=== PATIENT | female | born 1935 | race Caucasian/White ===

== ENCOUNTER 2016-10-08 18:04 | Inpatient (IN) | payer MEDICARE, BC ==
--- NOTE | ~2016-10-08 | DS ---
Discharge Summary [id number] [place]. [address] NAME: MEERA ART : 33 STATUS : DIS IN PAT#: [id number] AGE: 80 ADM/REG DATE : 10/08/16 MR#: [id number] REPORT SERV DATE: 10/13/16 DICTATED BY: ADELAIDA YE DATE: 10/13/16 REPORT STATUS : Draft TRANSCRIBED BY: MODL DATE: 10/13/16 ADMISSION DATE: 10/08/2016 DISCHARGE DATE: 10/13/2016 DIAGNOSES OF DISCHARGE: 1. Left upper lung mass, likely lung cancer, status post EBUS performed by Dr. Catalino Guzmán on 10/11/2016, pathology currently pending. 2. Small left apical pneumothorax, status post procedure, stable. 3. Chest pain secondary to above, resolved. 4. Chronic lymphocytic leukemia, confirmed by flow cytometry. 5. Hypertension. 6. Aortic regurgitation. 7. 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 CONSULTANTS ON THE CASE: Dr. Catalino Guzmán, Pulmonary; Dr. Pelaez, CT Surgery; Dr. Sean Aviles, Hemato-Oncology; and Dr. White, Vascular. PROCEDURES DONE DURING THIS HOSPITALIZATION: Include an EBUS navigational bronchoscopy for the left upper lung mass with pathology currently pending, likely lung cancer. 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 The patient does not have any PE, no dissection, just osteopenia. 2D echo that has been performed on 10/11/2016 shows a left ventricular systolic ejection fraction of 50%, dilated left atrium, aortic sclerosis with moderate aortic regurgitation, no other abnormalities. Chest x-ray, on 10/11/2016 as well as on 10/12/2016 and 10/13/2016 showing a malignant mass of the left upper lung field and some atelectatic changes. Very difficult to be visualized apical pneumothorax on the x-ray plain film, but has significant decrease in size from the CT study. HOSPITAL COURSE: This is a very pleasant 80-year-old female who has been transfer from an outside facility to [facility], where at that time, she has been presenting with some chest discomfort and palpitation. At the outside facility, initial workup including a CTA of the chest, found that she had a left upper lung mass and also an incidental finding was an abdominal aortic aneurysm with a small segment of dissection. As a results of the findings, after talking with Dr. White, the Vascular surgeon on-call, the patient has been transferred to [facility] to Hospitalist Service with a consult from Dr. White, Vascular. Due to the new discovery of the left upper lung mass, a Pulmonary consult with Dr. Catalino Guzmán has been obtained and with the intention to perform an EBUS bronchoscopy. She came also with significant leukocytosis and lymphocytosis. There were no significant Discharge Summary [address] [address] NAME: MEERA ART : 33 STATUS : DIS IN PAT#: [id number] AGE: 80 ADM/REG DATE : 10/08/16 MR#: [id number] REPORT SERV DATE: 10/13/16 DICTATED BY: ADELAIDA YE DATE: 10/13/16 REPORT STATUS : Draft TRANSCRIBED BY: MODL DATE: 10/13/16 signs of infection. A peripheral smear as well as a flow cytometry has been order and an Oncology consult with Dr. Sean Aviles has been obtained as well. The results of the flow cytometry have confirmed that the patient had a CLL, probably stage I, and due to the new diagnosis of the left upper lung mass for which the patient underwent an EBUS with bronchoscopy with likely lung cancer, Dr. Aviles will follow with the patient as an outpatient with MRI of the brain, also PET scan and also PFTs to be done next week. The patient has been found incidentally as I said, on the CTA of the chest, an infrarenal abdominal aneurysm with a short segment of dissection. The patient has not been symptomatic. Dr. White from Vascular Service has been evaluated the patient. Again, the patient has been completely asymptomatic, so recommendation would be blood pressure control, aspirin, and statin. Most likely, the patient, as I said, does have atherosclerotic disease and that was an incidental finding on an irregular plate with a small amount of dissection. Recommendation from the Vascular Service was to see Dr. White in one month or so with an abdominal aortic ultrasound. Due to the result of the EBUS, Dr. Guzmán consulted Dr. Pelaez from CT Surgery, who planned the patient to be evaluated outpatient next week pending the results of the pathology. Postprocedure, the patient developed some chest discomfort, especially on the left upper scapular and initial chest x-ray postprocedure has been ordered which has not been identified a pneumothorax. That has been followed by a CTA of the chest with PE protocol which did not show any PE or dissection, but it has shown that the patient did have a small pneumothorax, that the patient has been treated with oxygen breathing treatments, incentive spirometer, and symptoms completely resolved. The patient did not require oxygen and it looked that the pneumothorax remained stable and even smaller. On 10/13/2016, the patient has been ready for discharge from the Pulmonary standpoint. The patient will have a scheduled follow up with Dr. Sean Aviles on the week of 10/22/2016. We will schedule PET scan as an outpatient, MRI with or without gadolinium, and a pulmonary function test with DLCO the week of 10/15/2016. Followup appointment with Dr. Pelaez, CT Surgery, next week and Vascular follow up with Dr. White in four weeks with an ultrasound. Follow up Pulmonary with Dr. Ebony Mccarthy from the Pulmonary Service in three to four weeks after discharge as well as primary care provider followup appointment with Dr. Tony Torres in one week after discharge. MEDICATIONS AT DISCHARGE: Would include Norvasc 5 mg p.o. daily, aspirin 162 p.o. daily atorvastatin 40 mg at bedtime, also Xalatan ophthalmic drops 1 GTT ophthalmic at the bedtime, Protonix 40 p.o. daily, Levaquin 750 p.o. q.48 hours three more doses, multivitamin one tablet p.o. daily, flaxseed oil one dose p.o. daily, albuterol MDI p.r.n., as well as Ultram p.r.n. for pain. The patient has been advised to present to [facility] Emergency Room with an increased shortness of breath or any chest pain recur. That has been discussed extensively with the patient as well as the patient's family. All the questions have been answered in full. I have spent more than 30 minutes at discharging the patient, Surekha Meera, medication reconciliation, discharge summary, discharge instruction, and written prescriptions as well. CF/WARREN Discharge Summary [place] [address] [place] [address] NAME: MEERA ART : 33 STATUS : DIS IN PAT#: [id number] AGE: 80 ADM/REG DATE : 10/08/16 MR#: [id number] REPORT SERV DATE: 10/13/16 DICTATED BY: ADELAIDA YE DATE: 10/13/16 REPORT STATUS : Draft TRANSCRIBED BY: WARREN DATE: 10/13/16 Adelaida Ye M.D. / [id number] CC: Sanford Alves M.D.
--- NOTE | ~2016-10-08 | HP ---
History And Physical [place] [address] [facility] [place]. [address] NAME: MEERA ART : 33 STATUS : ADM IN PAT#: [id number] AGE: 80 ADM/REG DATE : 10/08/16 MR#: [id number] REPORT SERV DATE: 10/09/16 DICTATED BY: BIANKA SANCHEZ DATE: 10/08/16 REPORT STATUS : Draft TRANSCRIBED BY: MODL DATE: 10/08/16 DATE OF ADMISSION: 10/08/2016 CHIEF COMPLAINT: 1. Fast heart rate. 2. Transferred from [facility] after findings of leukocytosis with WBC count of 40,000 with lung mass and small dissection aneurysm. The case has already been discussed by ED physician at [facility] and Dr. White with Vascular Surgery. She was reported to be medically stable for telemetry floor, hemodynamically stable for telemetry floor. HISTORY OF PRESENT ILLNESS: The patient is a very pleasant 80-year-old female with only past medical history of psoriasis, very functional and active who appears younger than stated age who was having a fast heart rate type symptoms earlier today and mild discomfort in her back between her shoulder blades. When she told her son about this, she was promptly recommended to go to the emergency room. Upon evaluation at the emergency room, symptoms of tachycardia had already resolved, and the patient was already feeling better but workup did show abnormalities in labs including WBC and D-dimer which appears to have prompted CTA although this report is not currently available to me and is in the process of being sent. The findings did report small dissection with compensated vital signs, lung mass but no reported PE has been discussed. The patient was transferred to [facility] after ED has discussed with Dr. White for vascular evaluation and higher level of care. When discussing with the patient, the patient reports that she is doing quite well, has not had any cold extremities, has not had any vomiting of blood. No history of any tumors, did have recent sinusitis infection which was treated supportively at home. Her primary care doctor is Dr. Torres. The patient denies any current chest pain, palpitations. No nausea, vomiting. No active diarrhea, does report once a week may have diarrhea type episode going back almost a year but this has been intermittent and not continuous. The patient currently has a 0/10 pain. Symptoms occurred this morning when she woke up, went to rest and that is when she noted that she had a fast heart rate. REVIEW OF SYSTEMS: A 10-point review of systems negative except that noted in the HPI. PAST MEDICAL HISTORY: Only for psoriasis. SURGICAL HISTORY: She has had right hand surgery after a fall. She has had two vaginal deliveries but no gallbladder, no tonsils, no hysterectomy history. SOCIAL HISTORY: Smoked for approximately 8-10 years when she was younger but has quit many moons ago. She does have a nightly nightcap for alcohol and no illicits. FAMILY HISTORY: Of diabetes, otherwise family is fairly healthy, living from to [facility]. History And Physical [address] [address] NAME: MEERA ART : 33 STATUS : ADM IN [facility]#: [id number] AGE: 80 ADM/REG DATE : 10/08/16 MR#: [id number] REPORT SERV DATE: 10/09/16 DICTATED BY: BIANKA SANCHEZ DATE: 10/08/16 REPORT STATUS : Draft TRANSCRIBED BY: WARREN DATE: 10/08/16 ALLERGIES: PENICILLIN AND SULFA. MEDICATIONS: Xalatan, Centrum, and flaxseed oil. PHYSICAL EXAMINATION: VITAL SIGNS: The patient's blood pressure on the left arm 152/63, right arm 145/67, right leg 151/65, left leg 151/61, heart rate 67, respiratory rate 16. GENERAL: No acute distress. Calm, pleasant, well developed, well nourished, appears younger than stated age. EYES: No scleral icterus. EOMI. ENT: Nares patent. Tongue midline. Does have mild poor dentition. NECK: Supple without JVD. CHEST: Equal chest expansion. No increased AP diameter. RESPIRATORY: Clear to auscultation bilaterally. No wheezes, rales, or rhonchi. CARDIAC: Does have regular rate. Cap refill less than 2 seconds. Pulses palpable x4, does have systolic ejection murmur, approximately 2/6 but no rubs. ABDOMEN: Soft, nontender, nondistended. Bowel sounds positive. No fluid wave. No organomegaly. MUSCULOSKELETAL: Moves all extremities x4. Symmetrical strength upper and lower extremities. NEURO: Alert and oriented. Symmetrical smile. Tongue midline. Normal vocal debora. Sensation is grossly intact in upper and lower extremities. Leg and arms straight, symmetrical and equal, 5/5 strength. Gait currently not tested. PSYCH: Appropriate mood and affect. HEME: No bleeding or bruising. LYMPH: No cervical or supraclavicular lymphadenopathy. : Deferred. LABORATORY DATA: Pertinent labs from outside facility; WBC count 40.4, H and H 14.4 and 42.8, MCV 99, platelets 288, absolute lymphocyte 34.7. CK total 52. Sodium 141, potassium 5.2, calcium 8.9, BUN creatinine 16 and 0.85, AST ALT within normal limits. Bilirubin 0.8, magnesium 2.1. INR 1.0. Troponin less than 0.3. D-dimer was 0.64. CT has not been sent and is still currently pending. CT with contrast that was performed at outside facility report per transferring physician Dr. Mcleod, lung mass and small dissection and has been discussed with Dr. White. ASSESSMENT AND PLAN: 1. Leukocytosis. 2. Lung mass consolidation. 3. Dissected aneurysm. 4. Murmur. PLAN: 1. For leukocytosis; antibiotics until CT obtained. We will repeat chest x-ray in a.m. The patient did have contrasted CT. We will monitor. No additional SIRS symptoms. We will check SPEP, UPEP, start antibiotics until lung mass consolidation can be ruled History And Physical [address] [address] NAME: MEERA ART : 33 STATUS : ADM IN [facility]#: [id number] AGE: 80 ADM/REG DATE : 10/08/16 MR#: [id number] REPORT SERV DATE: 10/09/16 DICTATED BY: BIANKA SANCHEZ DATE: 10/08/16 REPORT STATUS : Draft TRANSCRIBED BY: MODL DATE: 10/08/16 out. We will also obtain procalcitonin and cultures. 2. Lung mass consolidation; cultures to be obtained. Antibiotics started, does have history of penicillin allergy. Obtain records from facility for further delineation. Additionally obtained last records from PCP, currently asymptomatic. We will defer further consultation to Pulmonary if indicated once CT obtained and placed on chart with records to be reviewed and a.m. chest x-ray. 3. Dissected aneurysm as reported small. ED has discussed this case with Dr. Phade, Vascular Surgery. I have checked all four extremities. There are no signs or symptoms of acute vascular decompensation but we will monitor closely on telemetry, and I have discussed with the family that any signs of decompensation will require higher level of care. However, the patient is essentially asymptomatic currently. She did have a tobacco use history for 8-10 years when she was younger but has not smoked in many years and has been fairly functional and active. We will defer further management to Vascular team. We will continue serial blood pressure checks symmetrically and pulse checks q.4 and per shift. 4. Murmur, grade 2/6 but no history. EKG from outside did not show any acute ST changes. Rate was 74, QTc 401. We will obtain echo and monitor troponins and repeat EKG in a.m. POLST form was completed with the patient and family. DNI, okay for chest compressions and limited short-term feeding tube if indicated. DDN/MODL Bianka Sanchez MD / [id number] CC: Poppy Sloan M.D.
--- NOTE | ~2016-10-08 | EGD ---
EGD REPORT [facility] [address] [address] NAME: MEERA IRBY : 33 STATUS : ADM IN PAT#: [id number] AGE: 80 ADM/REG DATE : 10/08/16 MR#: [id number] REPORT SERV DATE: 10/11/16 DICTATED BY: SRINIVAS CASTRO DATE: 10/11/16 REPORT STATUS : Draft TRANSCRIBED BY: [facility] DATE: 10/11/16 Pulmonology Patient Name: Meera Irby. Procedure Date: 10/11/2016 4:45 PM Date of : 1935 Attending MD: JEAN PAUL CASTRO MD Procedure Date No Time: 10/11/2016 Procedure: EBUS Navigational Bronchoscopy Indications: RIGO lung mass Providers: JEAN PAUL CASTRO MD Referring MD: LIDIA YE MD Medicines: Lidocaine 2% 20 mL Complications: No immediate complications Procedure: Pre-Anesthesia Assessment: - A History and Physical has been performed. Patient meds and allergies have been reviewed. The risks and benefits of the procedure and the sedation options and risks were discussed with the patient. All questions were answered and informed consent was obtained. Patient identification and proposed procedure were verified prior to the procedure by the physician and the nurse in the procedure room. Mental Status Examination: alert and oriented. Respiratory Examination: clear to auscultation. CV Examination: normal and RRR, no murmurs, no S3 or S4. ASA Grade Assessment: III - A patient with severe systemic disease. After reviewing the risks and benefits, the patient was deemed in satisfactory condition to undergo the procedure. The anesthesia plan was to use general anesthesia. Immediately prior to administration of medications, the patient was re-assessed for adequacy to receive sedatives. The heart rate, respiratory rate, oxygen saturations, blood pressure, adequacy of pulmonary ventilation, and response to care were monitored throughout the procedure. The physical status of the patient was re-assessed after the procedure. After obtaining informed consent, the BF [id number] was introduced through the mouth, via the endotracheal tube (the patient was intubated for the procedure) and advanced to the tracheobronchial tree. the Bronchoscope was introduced through the mouth, via the endotracheal tube (the patient was intubated for the procedure) and advanced to the tracheobronchial tree. The procedure was accomplished without difficulty. The patient tolerated the procedure well. Findings: EGD REPORT [address] [address] NAME: MEERA IRBY : 33 STATUS : ADM IN [facility]#: [id number] AGE: 80 ADM/REG DATE : 10/08/16 MR#: [id number] REPORT SERV DATE: 10/11/16 DICTATED BY: SRINIVAS CASTRO DATE: 10/11/16 REPORT STATUS : Draft TRANSCRIBED BY: [employer] DATE: 10/11/16 The endotracheal tube is in good position. The visualized portion of the trachea is of normal caliber. The francine is sharp. The tracheobronchial tree was examined to at least the first subsegmental level. Bronchial mucosa and anatomy are normal; there are no endobronchial lesions, and no secretions. EBUS TBNA of lymph node level 11R x 4 passes for cytology EBUS TBNA of lymph node level 7 x 9 passes for cytology EBUS TBNA of lymph node level 11L x 4 passes for cytology Using SuperDimension Edge catheter 180, peripheral probe EBUS 17s, and fluoroscopy, I performed the following biopsies: RIGO lung mass transbronchial needle aspirates x 15 passes for cytology RIGO lung mass transbronchial brush biopsy x 1 pass for cytology RIGO lung mass transbronchial forcep biopsies x 13 passes for histopathology Bronchoalveolar lavage was performed in the left upper lobe of the lung and sent for cell count, cytology, bacterial culture, viral smears \T\ culture, and fungal and AFB analysis. 180 mL of fluid were instilled. 50 mL were returned. The return was cellular. Impression: Rapid On-Site Evaluation (NAIN): Preliminary cytology is POSITIVE for malignancy (final results are pending). Recommendation: - Await test results. - Follow up with bronchoscopist tomorrow. - Follow up with Dr. Sean Aviles Attending Participation: I personally performed the entire procedure. JEAN PAUL CASTRO MD 10/11/2016 6:26 PM This report has been signed electronically. Number of Addenda: 0 Note Initiated On: 10/11/2016 4:45 PM [address] [address]
--- NOTE | ~2016-10-08 | CN ---
Consultation Report [facility] [address] [place]. [address] NAME: MEERA IRBY : 33 STATUS : ADM IN PAT#: [id number] AGE: 80 ADM/REG DATE : 10/08/16 MR#: [id number] REPORT SERV DATE: 10/10/16 DICTATED BY: ROBERTA CASTRO DATE: 10/09/16 REPORT STATUS : Draft TRANSCRIBED BY: MODL DATE: 10/09/16 CONSULTATION REPORT DATE OF CONSULTATION: Dear Dr. Acuña: Thank you for requesting my opinion regarding evaluation and management of Ms. Meera Irby's left upper lobe lung mass. Ms. Irby is an 80-year-old female with a significant past medical history of psoriasis, who presented to [facility] as an outside hospital transfer for a dissection. Dr. White has already evaluated her and deemed her dissection as a nonsurgical case. He did recommend aspirin. During her workup, she ended up having a CTA of the chest that demonstrated a left upper lobe lung mass with air bronchograms lead to more solid component. The patient has smoked remotely for 8 to 10 years when she was very young. She denies any known history of malignancy. The patient states that she has no significant current shortness of breath. She has expected exertional dyspnea, well-localized to the chest, nonradiating with no significant alleviating or exacerbating factors. She had an episode of a fast heart rate which is resolved. REVIEW OF SYSTEMS: A detailed 14-point review of systems was completed. Pertinent positives and negatives are listed above. PAST MEDICAL HISTORY: Psoriasis. PAST SURGICAL HISTORY: 1. Right hand surgery after mechanical fall. 2. Two vaginal deliveries. SOCIAL HISTORY: The patient smoked for 8 to 10 years when she was very young. She does have a nightly night cap for alcohol, but she denies any significant illicit drug abuse. FAMILY HISTORY: Diabetes. ALLERGIES: PENICILLIN AND SULFA. HOME MEDICATIONS: Xalatan, centrum, and flaxseed oil. PHYSICAL EXAMINATION: VITAL SIGNS: Afebrile, T current of 97.1, pulse of 73, respiratory rate 16, room air 94%, and blood pressure 144/62. GENERAL: No acute distress. Able to communicate in full paragraphs at a time. HEENT: Normocephalic, atraumatic. Pupils are equal, round, and reactive to light and Consultation Report [facility] [address] [place]. [address] NAME: MEERA IRBY : 33 STATUS : ADM IN PAT#: [id number] AGE: 80 ADM/REG DATE : 10/08/16 MR#: [id number] REPORT SERV DATE: 10/10/16 DICTATED BY: ROBERTA CASTRO DATE: 10/09/16 REPORT STATUS : Draft TRANSCRIBED BY: MODL DATE: 10/09/16 accommodation. Posterior oropharynx is clear. NECK : No JVD. No LAD. Trachea midline. CARDIOVASCULAR: Regular rate and rhythm. S1, S2 present. LUNGS: Clear to auscultation bilaterally. ABDOMEN: Nontender, nondistended. Soft. Positive bowel sounds. EXTREMITIES: No clubbing, cyanosis, or edema. SKIN: No new rashes, lesions, or ulcers. PSYCHIATRIC: Alert and oriented x3. Appropriate mood and affect. Appropriate insight and judgment. NEUROLOGIC: 5/5 strength in upper and lower extremities. Cranial nerves II through XII intact. Gait not tested. DTRs not performed. LABORATORY DATA: Procalcitonin is negative. The patient's white count is 39,000 on admission, 36.8 thousand on repeat. The patient's urine antigen is negative. IMAGING: Chest CT at outside hospital was personally reviewed by me and I agreed with the following interpretation: Left upper lobe lung mass with air bronchograms leading to a more solid component. No obvious mediastinal lymphadenopathy and small dissection is noted. ASSESSMENT AND PLAN: Ms. Meera Irby is a pleasant 80-year-old female with a significant past medical history of psoriasis and remote, minimal smoking history, who presents to [facility] as a transferred from outside hospital for evaluation of a dissecting aneurysm. During her workup, she had a CTA of the chest that demonstrated a left upper lobe lung mass with air bronchograms leading to more solid component. The patient also has a significant leukocytosis, if interesting, lymphocyte-predominant raising the question of whether or not she has chronic myelogenous leukemia. With regard to her left upper lobe lung mass, this may represent an inflammatory process such as a lung abscess or mass. At this point, we discussed in detail potential options including repeat imaging, PET-CT scan, CT-guided needle biopsy, EBUS and navigation bronchoscopy, or surgical intervention. After careful discussion of the risks, benefits, and alternatives to each of these procedures, the patient agreed to proceed with possible EBUS bronchoscopy. Pending further discussion with her family. The patient is aware that the procedure is associated with potential life-threatening risks, including lung collapse, respiratory failure, and even . RECOMMENDATIONS: A summary of my recommendations are as follows: 1. Continue current antibiotics given her profound leukocytosis. 2. Agree with Hematology consultation. Consultation Report [address] [place]. [address] NAME: MEERA IRBY : 33 STATUS : ADM IN PAT#: [id number] AGE: 80 ADM/REG DATE : 10/08/16 MR#: [id number] REPORT SERV DATE: 10/10/16 DICTATED BY: ROBERTA CASTRO DATE: 10/09/16 REPORT STATUS : Draft TRANSCRIBED BY: WARREN DATE: 10/09/16 3. Peripheral blood smear. 4. EBUS and navigation bronchoscopy in the next one to two days. 5. Pending family approval and discussion with Dr. White. Thank you for allowing me to participate in Ms. Meera Irby's care. Sincerely, TELMA/WARREN Roberta Castro M.D. / [id number] CC: Sanford Alves M.D.
--- NOTE | ~2016-10-08 | CN ---
Consultation Report [facility] [address] [facility] [place]. [address] NAME: MEERA IRBY : 33 STATUS : ADM IN PAT#: [id number] AGE: 80 ADM/REG DATE : 10/08/16 MR#: [id number] REPORT SERV DATE: 10/10/16 DICTATED BY: SEAN AVILES DATE: 10/09/16 REPORT STATUS : Draft TRANSCRIBED BY: MODL DATE: 10/09/16 DATE OF CONSULTATION: REASON FOR CONSULTATION: Lymphocytosis. HISTORY OF PRESENT ILLNESS: Meera Irby is an 80-year-old woman with history of psoriasis and minor surgery. She has less than a [id number] smoking history and quit more than 60 years ago. She was transferred from [facility] after abnormal CT finding and marked leukocytosis. White count was 40,000 with mostly lymphocytes. She underwent a CT scan, and had a possibility of aortic dissection. The left upper lobe mass was also found. She was transferred. She has been seen by a Vascular Surgery, he thinks there are no signs of dissection, and this can be observed, aneurysm can be observed. She has been seen by Dr. Guzmán of pulmonary who plans to evaluate with a bronchoscopy, the left upper lobe lesion. She denies any significant cough, fevers, recent infections other than perhaps a viral flu-like illness last month. The patient lives alone. She is fairly active. She denies any significant adenopathy, although she did notice a right posterior cervical node with a recent viral illness. PAST MEDICAL HISTORY: Psoriasis. PAST SURGICAL HISTORY: Right hand surgery, two vaginal deliveries. SOCIAL HISTORY: She reports that she has smoked six to eight years, less than a half-a-pack a day. Quit more than 50 to 60 years ago. 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 FAMILY HISTORY: No significant family history of cancer. ALLERGIES: PENICILLIN AND SULFA. MEDICATIONS: Xalatan, centrum, and flaxseed oil. REVIEW OF SYSTEMS: See my HPI. A 12-point review of systems negative for any symptoms. PHYSICAL EXAMINATION: VITAL SIGNS: Temperature 97.1, heart rate is 74, BP 144/62. HEENT: Pupils equal, round, reactive. No oral lesions. No cervical adenopathy. LUNGS: Clear to auscultation. No wheezes or rales. CARDIAC: Regular rate and rhythm. Normal S1, S2. Axillary nodes were palpable, left greater than right, measuring around 2 cm on the left, and 1 cm on the right. ABDOMEN: Soft, nontender, nondistended. No splenomegaly. EXTREMITIES: No clubbing, no cyanosis, no edema. LABORATORY DATA: Peripheral film was reviewed. She does have marked head lymphocytosis with Consultation Report [address] [place]. [address] NAME: MEERA IRBY : 33 STATUS : ADM IN PAT#: [id number] AGE: 80 ADM/REG DATE : 10/08/16 MR#: [id number] REPORT SERV DATE: 10/10/16 DICTATED BY: SEAN AVILES. DATE: 10/09/16 REPORT STATUS : Draft TRANSCRIBED BY: WARREN DATE: 10/09/16 significance smudge cells. ASSESSMENT AND PLAN: Ms. Irby is an 80-year-old woman with two separate processes. CT scan was reviewed, she does have a left upper lobe mass. There is no mediastinal adenopathy, but she also does have bilateral axillary nodes, I think, major account representative of the lymphocytosis process. ASSESSMENT AND PLAN: Ms. Irby is [id number]. She has 2 separate processes: 1. Left upper lobe mass. I am worried this could be a malignancy. She is oligo-smoker, quit more than 60 years ago. I am hoping that this is benign, but if not then certainly her performance status is good, recommended that we go ahead and perform a flow cytometry to confirm that this is chronic lymphocytic leukemia. If this is, then we will likely observe at this time. The CT scans were reviewed with the patient and her family and all other questions answered. DBD/MODL Sean Aviles M.D. / [id number] CC: Sanford Alves M.D.
--- NOTE | ~2016-10-08 | CN ---
Consultation Report [facility] [address] [place]. [address] NAME: MEERA ART : 33 STATUS : ADM IN PAT#: [id number] AGE: 80 ADM/REG DATE : 10/08/16 MR#: [id number] REPORT SERV DATE: 10/11/16 DICTATED BY: NAV WHITE DATE: 10/10/16 REPORT STATUS : Draft TRANSCRIBED BY: MODDonal DATE: 10/10/16 CONSULT NOTE DATE OF CONSULTATION: 10/09/2016 REASON FOR CONSULTATION: Evaluation for aortic dissection. BRIEF HISTORY: The patient is an 80-year-old female with a past medical history that is fairly unremarkable who presented to [facility] with tachycardia. In her workup, she underwent a CT of her chest. There was a reported aortic dissection on this imaging so she was sent over for further treatment. Additionally, she was found to have a lung mass and leukocytosis for which she is being worked up. The patient denies any complaints. She specifically denies any abdominal or back pain. She has had no problems with claudication or ischemic rest pain. She has had no food fear or weight loss. PAST MEDICAL HISTORY: Psoriasis. PAST SURGICAL HISTORY: Right hand surgery, 2 vaginal deliveries. SOCIAL HISTORY: She smoked in the remote past. It sounds like she has smoked for about 8 years. She occasionally drinks but denies any drug use. She has supportive family. ALLERGIES: PENICILLIN AND SULFA. MEDICATIONS: Documented on the chart and were reviewed. REVIEW OF SYSTEMS: A complete review of systems was performed and is negative with the exception of aforementioned findings. FAMILY HISTORY: Noncontributory. PHYSICAL EXAMINATION: VITAL SIGNS: Documented on the chart and were reviewed. GENERAL: The patient is awake, alert, oriented. No apparent distress. HEAD AND NECK: Benign without any carotid bruits. HEART: Regular rate and rhythm. LUNGS: Clear. ABDOMEN: Soft, nontender, nondistended with a nonaneurysmal aorta. EXTREMITIES: She has a normal complement of upper extremity pulses without any significant edema or ischemic ulcerations. She has palpable femoral and popliteal pulses. I do not appreciate pedal pulses. She has no significant edema or ischemic ulcerations. NEUROLOGICAL: Grossly nonfocal. MUSCULOSKELETAL: Otherwise benign. Consultation Report [place] [id number] [facility] [address] [place]. [address] NAME: MEERA ART DOB: [birth year] STATUS : ADM IN PAT#: [id number] AGE: 80 ADM/REG DATE : 10/08/16 MR#: [id number] REPORT SERV DATE: 10/11/16 DICTATED BY: NAV WHITE DATE: 10/10/16 REPORT STATUS : Draft TRANSCRIBED BY: WARREN DATE: 10/10/16 LABORATORY DATA: Her laboratory investigations reveal no renal dysfunction. She does have a leukocytosis of over 30,000. It looks like it has decreased a little bit. I reviewed her CT imaging. She has a left upper lobe lung mass. She has some calcification and plaque within her aorta and branch vessels. In her very last images of her CT of her chest, there is some irregular plaque in her infrarenal aorta with some flow within the plaque. This looks like a short segment dissection. It is incompletely imaged. ASSESSMENT AND PLAN: It looks like this lady has a lung mass and leukocytosis. Most likely, she has a malignancy. She has atherosclerotic disease and an incidental finding of an irregular plaque with dissection. She is asymptomatic from this. She simply needs an aspirin and statin. I will see her back in a month or 2 with an aortic ultrasound. We certainly would not treat anything this asymptomatic. Having said that, I will also want to get a lower extremity arterial duplex, because her popliteal pulses feel a little wide. I suspect that they are probably not aneurysmal, but rather she has a bounding pulse because of an outflow obstruction. Once again, we probably would not treat this unless she is symptomatic or if she has a large aneurysm. I explained all this to the patient and her family, who expressed understanding. She was excited of the fact that she does not have to have an operation acutely. SHOT EXAMINER/WARREN Nav White M.D. / [id number] CC: Sanford Alves M.D.
--- NOTE | ~2016-10-08 | DS ---
Discharge Summary [facility] [address] [place]. [address] NAME: MEERA ART : 33 STATUS : ADM IN PAT#: [id number] AGE: 80 ADM/REG DATE : 10/08/16 MR#: [id number] REPORT SERV DATE: 10/12/16 DICTATED BY: ADELAIDA YE DATE: 10/12/16 REPORT STATUS : Draft TRANSCRIBED BY: MODL DATE: 10/12/16 ADMISSION DATE: 10/08/2016 DISCHARGE DATE: DIAGNOSES OF DISCHARGE: 1. Left upper lung mass, likely lung cancer. Pathology currently. Status post EBUS performed by Dr. Catalino Guzmán on 10/11/2016. 2. Chronic lymphocytic leukemia, confirmed by flow cytometry. 3. Small abdominal aneurysm dissection on CT scan of the chest performed at the outside facility. 4. Hypertension. 5. Aortic regurgitation. CONSULTANTS ON THE CASE: Dr. Catalino Guzmán, Pulmonary; Dr. Pelaez, CT Surgery; Dr. Sean Aviles, Hemato-Oncology; and Dr. White, Vascular. PROCEDURE DONE DURING THIS HOSPITALIZATION: Include an EBUS navigational bronchoscopy for the left upper lung mass with likely lung cancer. Pathology, cytology, and PillCam currently are pending. Also, done during this hospitalization would include 2D echo that has been performed on 10/11/2016 showing normal left ventricular systolic function, ejection fraction of 50%, dilated left atrium, aortic sclerosis with moderate aortic valvular regurgitation. No other abnormalities. Also, the patient's chest x-ray, portable, on 10/11/2016, showing mass-like round infiltrate of the left upper lobe. Her blood cultures have remained negative at discharge. HOSPITAL COURSE: This is a very pleasant 80-year-old female who has been transferred to [facility] from an outside facility on 10/09/2016 where she has been presenting with some chest discomfort and palpitation. At the outside facility, she has been found to have a white count of 40,000, found also to have a left upper lung mass and an abdominal aortic aneurysm with a small segment of dissection. After discussion with Dr. White, the vascular surgeon on-call, the patient has been transferred to [facility]. Due to the presence of the left upper lung mass, a Pulmonary consult with Dr. Catalino Guzmán has been obtained with the intent to perform an EBUS as navigational bronchoscopy. Obviously, her white count has been extremely elevated on admission. She did not have the signs of infection. A peripheral smear as well as a flow cytometry has been ordered and done and Oncology consult with Dr. Sean Aviles has been obtain as well. Obviously, the patient flow has confirmed that the patient has CLL, probably stage I and also due to the presence of the left upper lung mass which likely is lung cancer, per the recommendation, per Dr. Aviles has been done. Due to the fact that the patient did have a very short segment of dissection at the infrarenal abdominal aorta, Dr. White from Vascular Service has been evaluating the patient. The patient has been completely asymptomatic from that, obviously she simply would need to be on blood pressure control, aspirin and statin. Most likely, she does have Discharge Summary [address] [address] NAME: MEERA ART : 33 STATUS : ADM IN PAT#: [id number] AGE: 80 ADM/REG DATE : 10/08/16 MR#: [id number] REPORT SERV DATE: 10/12/16 DICTATED BY: ADELAIDA YE DATE: 10/12/16 REPORT STATUS : Draft TRANSCRIBED BY: MODDonal DATE: 10/12/16 atherosclerotic disease and that was an incidental finding on an irregular plate with a small amount of dissection. The plan from Dr. White would to be see her back in his clinic in one month or so with an abdominal aortic ultrasound. The patient has been seen after the EBUS navigational bronchoscopy by the CT Surgeon, Dr. Pelaez's nurse practitioner, who planned to follow the patient as an outpatient next week, pending the results of the pathology. On 10/12/2016, the patient has been ready for discharge. The patient will have a scheduled follow up with Dr. Sean Aviles on the week of 10/22/2016. We will schedule a PET scan, MRI with and without gadolinium and a pulmonary function test with DLCO next week of week of 10/15/2016. We will arrange a followup appointment with Dr. Pelaez, CT Surgery, next week, vascular follow up with Dr. White in four weeks after discharge and Pulmonary followup with Dr. Ebony Mccarthy from Pulmonary Service in three to four weeks after discharge, then primary care provider followup appointment with Dr. Tony Torres in one week after discharge. MEDICATIONS AT DISCHARGE: Would include Norvasc 5 mg p.o. daily, aspirin 162 p.o. daily, Lipitor 40 p.o. daily, Protonix 40 mg p.o. daily, Levaquin 750 mg p.o. q.48 hours x3 doses, and Xalatan ophthalmic solution 1 gtt at bedtime in both eyes. That has been discussed extensively with the patient as well as the patient's family. All the questions have been answered in full. I have spent more than 30 minutes at discharging patient Pack Meera medication reconciliation, discharge summary, discharge instruction, and written prescriptions as well. CF/MODL Adelaida Ye M.D. / [id number] CC: Sanford Alves M.D. Pamela Sud, M.D. Sachin V Phade, M.D. James Headrick Jr., M.D. Davey B. Daniel, M.D.
[2016-10-08] MEDS ORDERED: FLAX SEED OIL PO (19:01)
[2016-10-08] MEDS ORDERED: CENTRUM PO (19:01)
[2016-10-08] MEDS ORDERED: XALAT OPH (19:05)
[2016-10-08 22:06] LABS: HEMATOCRIT 39.6 % (36.0-48.0); HEMOGLOBIN 13.4 g/dL (12.0-16.0); MEAN CORPUS HGB CONC 33.8 g/dL (32.0-36.0); MEAN CORPUSCULAR HEMOGLOB 33.9 pg (26.0-34.0); MEAN CORPUSCULAR VOLUME 100.3 fL (80-100); MEAN PLATELET VOLUME 9.3 fL (9.2-13.0); PLATELET COUNT 236 10/3/uL (150-400); RBC DISTRIBUTION WIDTH 14.2 % (12.0-16.0); RED CELL COUNT 3.95 10/6/uL (4.0-5.6)
[2016-10-08 22:11] LABS: WHITE BLOOD CELLS 39.6 10/3/uL (4.5-10.5)
[2016-10-08 22:13] LABS: MANUAL DIFF YES %
[2016-10-08 22:27] LABS: BASOPHILS 1 %; LYMPHOCYTES 83 %; LYMPHOCYTES ABSOLUTE (CALC) 32.87 10/3/uL (0.67-4.30); MONOCYTES 6 %; MONOCYTES ABSOLUTE (CALC) 2.38 10/3/uL (0.21-1.20); NEUTROPHILS ABSOLUTE (CALC) 3.96 10/3/uL (2.02-8.40); SEGMENTED NEUTROPHIL (0) 10 %; SMUDGE CELLS FEW; TOTAL NUCLEATED CELLS 100
[2016-10-08 22:28] LABS: ALBUMIN 3.5 G/DL (3.5-5.0); ALKALINE PHOSPHATASE 78 U/L (45-117); BUN (BLOOD UREA NITROGEN) 21 MG/DL (6-23); CALCIUM, SERUM 8.7 MG/DL (8.5-10.4); CHLORIDE, SERUM 106 MMOL/L (96-112); CO2 (CARBON DIOXIDE) 25 MMOL/L (24-34); CREATININE 1.02 MG/DL (0.55-1.02); GFR AFRICAN AMERICAN 59 ML/MIN (>=60); GFR NON AFRICAN AMERICAN 51 ML/MIN (>=60); GLOBULIN 3.4 G/DL (2.5-4.1); GLUCOSE, SERUM 104 MG/DL (60-99); POTASSIUM, SERUM 4.5 MMOL/L (3.5-5.3); SGPT(ALT) 18 U/L (5-65); SODIUM, SERUM 139 MMOL/L (135-148); TOTAL PROTEIN 6.9 G/DL (6.0-8.5); TROPONIN I 0.03 NG/ML (<0.05)
[2016-10-08 22:28] LABS: PATH REVIEW YES; PLATELET ESTIMATE ADQ (ADEQUATE); RBC MORPHOLOGY NORM (NORMAL)
[2016-10-08 22:29] LABS: SGOT(AST) 21 U/L (5-40)
[2016-10-08 23:20] LABS: PROCALCITONIN <0.05 ng/mL (<0.5)
[2016-10-09 02:06] LABS: ASCORBIC ACID (UR NOT ORDER) NEG (NEG); BILIRUBIN, URINE NEGATIVE (NEG); KETONE, URINE NEGATIVE (NEG); LEUKOCYTE ESTERASE(NOT OR TRACE (NEG); WBC (NOT ORDERED) (RFLEX) 2 (0-5)
[2016-10-09 08:19] LABS: HEMATOCRIT 39.2 % (36.0-48.0); HEMOGLOBIN 13.4 g/dL (12.0-16.0); MEAN CORPUS HGB CONC 34.2 g/dL (32.0-36.0); MEAN CORPUSCULAR HEMOGLOB 34.4 pg (26.0-34.0); MEAN CORPUSCULAR VOLUME 100.5 fL (80-100); MEAN PLATELET VOLUME 9.1 fL (9.2-13.0); PLATELET COUNT 233 10/3/uL (150-400); RBC DISTRIBUTION WIDTH 14.2 % (12.0-16.0)
[2016-10-09 08:22] LABS: MANUAL DIFF YES %; WHITE BLOOD CELLS 36.8 10/3/uL (4.5-10.5)
[2016-10-09 08:29] LABS: CALCIUM, SERUM 8.8 MG/DL (8.5-10.4); CHLORIDE, SERUM 105 MMOL/L (96-112); CO2 (CARBON DIOXIDE) 26 MMOL/L (24-34); CREATININE 0.98 MG/DL (0.55-1.02); GFR AFRICAN AMERICAN 62 ML/MIN (>=60); GFR NON AFRICAN AMERICAN 54 ML/MIN (>=60); GLUCOSE, SERUM 85 MG/DL (60-99); POTASSIUM, SERUM 4.1 MMOL/L (3.5-5.3); SODIUM, SERUM 140 MMOL/L (135-148)
[2016-10-09 08:30] LABS: BUN (BLOOD UREA NITROGEN) 17 MG/DL (6-23)
[2016-10-09 08:31] LABS: T PROTEIN (ELECT)(NOT OR 6.6 G/DL (6.0-8.5)
[2016-10-09 08:42] LABS: LYMPHOCYTES 85 %; LYMPHOCYTES ABSOLUTE (CALC) 31.28 10/3/uL (0.67-4.30); MACROCYTES 1+ (5-10/OIF) (0-5/OIF); MONOCYTES 5 %; MONOCYTES ABSOLUTE (CALC) 1.84 10/3/uL (0.21-1.20); NEUTROPHILS ABSOLUTE (CALC) 3.68 10/3/uL (2.02-8.40); PLATELET ESTIMATE ADQ (ADEQUATE); SEGMENTED NEUTROPHIL (0) 10 %; SMUDGE CELLS FEW; TOTAL NUCLEATED CELLS 100
[2016-10-09 08:43] LABS: ATYPICAL LYMPH FEW (3-5%) (0-5%); REACTIVE LYMPHS OCC (0-2%) (0-5%)
[2016-10-09 10:37] LABS: PATH REVIEW SEE PATHOLOGY REPORT
[2016-10-09 13:28] LABS: TROPONIN I <0.02 NG/ML (<0.05)
[2016-10-09 13:30] LABS: FOLATE 18.6 NG/ML (>5.2)
[2016-10-10 06:40] LABS: HEMATOCRIT 37.9 % (36.0-48.0); HEMOGLOBIN 12.9 g/dL (12.0-16.0); MEAN CORPUSCULAR HEMOGLOB 34.2 pg (26.0-34.0); MEAN CORPUSCULAR VOLUME 100.5 fL (80-100); MEAN PLATELET VOLUME 9.2 fL (9.2-13.0); PLATELET COUNT 202 10/3/uL (150-400); RBC DISTRIBUTION WIDTH 14.1 % (12.0-16.0); RED CELL COUNT 3.77 10/6/uL (4.0-5.6)
[2016-10-10 06:42] LABS: MANUAL DIFF YES %; WHITE BLOOD CELLS 32.1 10/3/uL (4.5-10.5)
[2016-10-10 06:54] LABS: A/G RATIO 0.9 (0.7-1.9); ALBUMIN 2.9 G/DL (3.5-5.0); ALKALINE PHOSPHATASE 70 U/L (45-117); BUN (BLOOD UREA NITROGEN) 14 MG/DL (6-23); CALCIUM, SERUM 8.5 MG/DL (8.5-10.4); CHLORIDE, SERUM 109 MMOL/L (96-112); CO2 (CARBON DIOXIDE) 22 MMOL/L (24-34); CREATININE 0.92 MG/DL (0.55-1.02); GFR AFRICAN AMERICAN 67 ML/MIN (>=60); GFR NON AFRICAN AMERICAN 58 ML/MIN (>=60); GLOBULIN 3.2 G/DL (2.5-4.1); GLUCOSE, SERUM 97 MG/DL (60-99); SGOT(AST) 14 U/L (5-40); SGPT(ALT) 13 U/L (5-65); SODIUM, SERUM 143 MMOL/L (135-148); TOTAL BILIRUBIN 1.1 MG/DL (0-1.2); TOTAL PROTEIN 6.1 G/DL (6.0-8.5)
[2016-10-10 07:00] LABS: PROTIME (NOT ORD) 13.4 SEC (12.0-14.5)
[2016-10-10 07:10] LABS: LYMPHOCYTES 86 %; LYMPHOCYTES ABSOLUTE (CALC) 27.61 10/3/uL (0.67-4.30); MACROCYTES 1+ (5-10/OIF) (0-5/OIF); MONOCYTES 5 %; MONOCYTES ABSOLUTE (CALC) 1.61 10/3/uL (0.21-1.20); NEUTROPHILS ABSOLUTE (CALC) 2.89 10/3/uL (2.02-8.40); PLATELET ESTIMATE ADQ (ADEQUATE); SEGMENTED NEUTROPHIL (0) 9 %; SMUDGE CELLS MOD; TOTAL NUCLEATED CELLS 100
[2016-10-10 07:11] LABS: ATYPICAL LYMPH OCC (0-2%) (0-5%)
[2016-10-10 12:00] LABS: A/G 1.47 RATIO (0.9-2.10); ALB RELATIVE % 59.5 % (60.0-89.0); ALBUMIN (ELECTRO) 3.93 GM/DL (3.2-5.5); ALPHA 1 (ELECTRO) 0.18 GM/DL (0.1-0.4); ALPHA 1 RELAT % (NOT ORD) 2.8 % (1.0-4.0); ALPHA 2 (ELECTRO) 0.76 GM/DL (0.5-1.10); ALPHA 2 RELAT % 11.5 % (4.5-26.0); BETA GLOBULIN (SPE) 0.77 GM/DL (0.60-1.30); BETA RELATIVE % 11.7 % (9.0-22.0); GAMMA GLOBULIN (SPE) 0.96 G/DL (0.70-1.60); GAMMA RELAT % 14.5 % (6.0-22.0)
[2016-10-11 06:00] LABS: INTERNATIONAL NORMAL RATI 1.2 UNITS (-); PARTIAL THROMBO TIME 35.5 SEC (22.5-37.2)
[2016-10-11 06:03] LABS: HEMATOCRIT 37.4 % (36.0-48.0); HEMOGLOBIN 12.6 g/dL (12.0-16.0); MEAN CORPUS HGB CONC 33.7 g/dL (32.0-36.0); MEAN CORPUSCULAR HEMOGLOB 34.2 pg (26.0-34.0); MEAN CORPUSCULAR VOLUME 101.6 fL (80-100); MEAN PLATELET VOLUME 8.9 fL (9.2-13.0); PLATELET COUNT 177 10/3/uL (150-400); RED CELL COUNT 3.68 10/6/uL (4.0-5.6)
[2016-10-11 06:04] LABS: PROTIME (NOT ORD) 15.5 SEC (12.0-14.5)
[2016-10-11 06:07] LABS: MANUAL DIFF YES %
[2016-10-11 06:14] LABS: BUN (BLOOD UREA NITROGEN) 13 MG/DL (6-23); CALCIUM, SERUM 7.9 MG/DL (8.5-10.4); CHLORIDE, SERUM 112 MMOL/L (96-112); CO2 (CARBON DIOXIDE) 21 MMOL/L (24-34); CREATININE 0.78 MG/DL (0.55-1.02); GFR AFRICAN AMERICAN 82 ML/MIN (>=60); GFR NON AFRICAN AMERICAN 71 ML/MIN (>=60); GLUCOSE, SERUM 91 MG/DL (60-99); SODIUM, SERUM 143 MMOL/L (135-148)
[2016-10-11 06:51] LABS: EOSINOPHILS 1 %; EOSINOPHILS ABSOLUTE (CALC) 0.29 10/3/uL (0.0-0.53); LYMPHOCYTES 86 %; LYMPHOCYTES ABSOLUTE (CALC) 24.94 10/3/uL (0.67-4.30); MACROCYTES 1+ (5-10/OIF) (0-5/OIF); MONOCYTES 1 %; MONOCYTES ABSOLUTE (CALC) 0.29 10/3/uL (0.21-1.20); NEUTROPHILS ABSOLUTE (CALC) 3.48 10/3/uL (2.02-8.40); PLATELET ESTIMATE ADQ (ADEQUATE); SEGMENTED NEUTROPHIL (0) 12 %; SMUDGE CELLS MANY; TOTAL NUCLEATED CELLS 100
[2016-10-12 07:19] LABS: BUN (BLOOD UREA NITROGEN) 16 MG/DL (6-23); CHLORIDE, SERUM 111 MMOL/L (96-112); CO2 (CARBON DIOXIDE) 18 MMOL/L (24-34); CREATININE 0.79 MG/DL (0.55-1.02); GFR AFRICAN AMERICAN 81 ML/MIN (>=60); GFR NON AFRICAN AMERICAN 70 ML/MIN (>=60); POTASSIUM, SERUM 4.2 MMOL/L (3.5-5.3); SODIUM, SERUM 143 MMOL/L (135-148)
[2016-10-12 07:20] LABS: GLUCOSE, SERUM 132 MG/DL (60-99)
[2016-10-12 07:34] LABS: HEMATOCRIT 36.2 % (36.0-48.0); HEMOGLOBIN 12.2 g/dL (12.0-16.0); MEAN CORPUS HGB CONC 33.7 g/dL (32.0-36.0); MEAN CORPUSCULAR HEMOGLOB 33.8 pg (26.0-34.0); MEAN CORPUSCULAR VOLUME 100.3 fL (80-100); MEAN PLATELET VOLUME 9.2 fL (9.2-13.0); PLATELET COUNT 192 10/3/uL (150-400); RBC DISTRIBUTION WIDTH 14.1 % (12.0-16.0); RED CELL COUNT 3.61 10/6/uL (4.0-5.6)
[2016-10-12 07:39] LABS: MANUAL DIFF YES %; WHITE BLOOD CELLS 25.8 10/3/uL (4.5-10.5)
[2016-10-12 07:50] LABS: BAND NEUTROPHILS 1 %; HYPOCHROMIA 1+ (3-10/OIF) (0-2/OIF); LYMPHOCYTES 82 %; LYMPHOCYTES ABSOLUTE (CALC) 21.16 10/3/uL (0.67-4.30); MACROCYTES 1+ (5-10/OIF) (0-5/OIF); MONOCYTES 4 %; MONOCYTES ABSOLUTE (CALC) 1.03 10/3/uL (0.21-1.20); NEUTROPHILS ABSOLUTE (CALC) 3.61 10/3/uL (2.02-8.40); PLATELET ESTIMATE ADQ (ADEQUATE); SEGMENTED NEUTROPHIL (0) 13 %; TOTAL NUCLEATED CELLS 100
[2016-10-12] MEDS ORDERED: PROTONIX PO (14:35)
[2016-10-12] MEDS ORDERED: LIPITOR40 PO (14:35)
[2016-10-12] MEDS ORDERED: NORV5 PO (14:36)
[2016-10-12] MEDS ORDERED: LEVAQUIN750 MG PO (14:38)
[2016-10-12] MEDS ORDERED: ASAB PO (14:39)
[2016-10-12 16:24] LABS: CPK (IF ELEVATED MB BANDS) 49 U/L (0-200); TROPONIN I <0.02 NG/ML (<0.05)
[2016-10-13 07:55] LABS: A/G RATIO 0.8 (0.7-1.9); ALBUMIN 2.7 G/DL (3.5-5.0); ALKALINE PHOSPHATASE 63 U/L (45-117); BUN (BLOOD UREA NITROGEN) 21 MG/DL (6-23); CALCIUM, SERUM 7.6 MG/DL (8.5-10.4); CHLORIDE, SERUM 108 MMOL/L (96-112); CO2 (CARBON DIOXIDE) 21 MMOL/L (24-34); CREATININE 0.86 MG/DL (0.55-1.02); GFR AFRICAN AMERICAN 73 ML/MIN (>=60); GFR NON AFRICAN AMERICAN 63 ML/MIN (>=60); GLOBULIN 3.2 G/DL (2.5-4.1); GLUCOSE, SERUM 112 MG/DL (60-99); POTASSIUM, SERUM 3.3 MMOL/L (3.5-5.3); SGOT(AST) 25 U/L (5-40); SGPT(ALT) 21 U/L (5-65); SODIUM, SERUM 139 MMOL/L (135-148); TOTAL BILIRUBIN 0.9 MG/DL (0-1.2); TOTAL PROTEIN 5.9 G/DL (6.0-8.5)
[2016-10-13 08:02] LABS: HEMATOCRIT 34.7 % (36.0-48.0); HEMOGLOBIN 11.9 g/dL (12.0-16.0); MEAN CORPUS HGB CONC 34.3 g/dL (32.0-36.0); MEAN CORPUSCULAR HEMOGLOB 34.3 pg (26.0-34.0); MEAN PLATELET VOLUME 9.3 fL (9.2-13.0); PLATELET COUNT 183 10/3/uL (150-400); RBC DISTRIBUTION WIDTH 14.4 % (12.0-16.0); RED CELL COUNT 3.47 10/6/uL (4.0-5.6)
[2016-10-13 08:15] LABS: MANUAL DIFF YES %; WHITE BLOOD CELLS 40.8 10/3/uL (4.5-10.5)
[2016-10-13 10:21] LABS: LYMPHOCYTES 89 %; LYMPHOCYTES ABSOLUTE (CALC) 36.31 10/3/uL (0.67-4.30); MONOCYTES 3 %; MONOCYTES ABSOLUTE (CALC) 1.22 10/3/uL (0.21-1.20); NEUTROPHILS ABSOLUTE (CALC) 3.26 10/3/uL (2.02-8.40); PLATELET ESTIMATE ADQ (ADEQUATE); POLYCHROMASIA 1+ (2-5/OIF) (0-1/OIF); SEGMENTED NEUTROPHIL (0) 8 %; SMUDGE CELLS MANY; TOTAL NUCLEATED CELLS 100
[2016-10-13 10:22] LABS: MACROCYTES 1+ (5-10/OIF) (0-5/OIF)
[2016-10-13] MEDS ORDERED: ULTRAM50 PO (14:54)
[2016-10-13] MEDS ORDERED: PROVHFA INH (14:55)
[2016-10-31] MEDS ORDERED: MULTIPLE VIT PO ×2 (16:45→16:46)
[2016-10-31] MEDS ORDERED: FLAXSEED OIL1000 MG PO (16:45)
== END 2016-10-13 16:47 | disposition home or self-care (01) | DRG 166 ==
LOC: 5NO 18:04
PROVIDERS: Internal Medicine; Student in an Organized Health Care Education/Training Program
PROC: 0BBG8ZX Excision of Left Upper Lung Lobe, Via Natural or Artificial Opening Endoscopic, Diagnostic (ICD-10-PCS; principal; 2016-10-11 16:59)
PROC: 07B74ZX Excision of Thorax Lymphatic, Percutaneous Endoscopic Approach, Diagnostic (ICD-10-PCS; 2016-10-11 16:59)
DX: D49.1 Neoplasm of unspecified behavior of respiratory system (principal); I71.02 Dissection of abdominal aorta; C91.10 Chronic lymphocytic leukemia of B-cell type not having achieved remission; Z87.891 Personal history of nicotine dependence; Z88.0 Allergy status to penicillin; Z88.2 Allergy status to sulfonamides; I10 Essential (primary) hypertension; I35.1 Nonrheumatic aortic (valve) insufficiency
CPT/HCPCS: 71010; 71020; 71275; 80048; 80053; 81001; 82550; 82607; 82746; 83735; 83880; 84145; 84155; 84165; 84443; 84484; 85025; 85610; 85730; 87040; 87449; 88112; 88172; 88173; 88177; 88184; 88185; 88305; 88333; 88367; 93005; 93306; A9270-GY; C1725; J1956; J2370; J2405; J2710; J3010; Q9967